=== PATIENT | female | born 1945 | race Caucasian/White ===

== ENCOUNTER → 2023-05-30 09:00 | Outpatient (REF) | payer MEDICARE, SELFPAY | LOC: HWRAD 09:00 | PROVIDERS: ATTENDING PHYSICIAN Family Medicine | DX: M81.0 Age-related osteoporosis without current pathological fracture (principal) | CPT/HCPCS: 77080 ==

== ENCOUNTER → 2023-06-13 10:40 | Outpatient (REF) | payer MEDICARE, SELFPAY | LOC: HWWDC 10:40 | PROVIDERS: ATTENDING PHYSICIAN Family Medicine | DX: Z12.31 Encounter for screening mammogram for malignant neoplasm of breast (principal) | CPT/HCPCS: 77063; 77067 ==

== ENCOUNTER 2023-08-25 07:19 | Emergency (ER) | payer MEDICARE, SELFPAY ==
[2023-08-25 07:25] VITALS: BP 122/70
--- NOTE | 2023-08-25 07:58 | ED.GENMED ---
History of Present Illness
General
Chief Complaint: Dizziness
Source: patient
Exam Limitations: none
Time Seen by Provider: 08/25/23 07:50
Travel History
Have you had any contact with someone who has COVID-19?: No
Do you have any symptoms of coronavirus? Fever > 100 degrees, chills, cough, shortness of breath, sore throat, loss of taste or smell, muscle aches, or headache?: No
History of Present Illness
History of Present Illness:
77-year-old female fell asleep on the couch. She got up to go the bathroom became dizzy lightheaded and fell to the floor hitting her face. She does not think she passed out. Only complaints are facial trauma and left hand trauma. No headache
neck pain chest pain abdominal pain lightheadedness or other complaints. She has had some nausea and vomiting in the last few days. Admits to occasional alcohol use.
Past History
Past History
ED Past Medical History: GERD, HTN and Other
ED Past Surgical History: Orthopedic (Knee surgery, arthroscopic. ) and Other (endoscopy/colonoscopy)
Social History
Tobacco: Non-smoker
Alcohol: Other (wine, history of alcohol abuse)
Drug: None
Personal:
Living: with family
Employment: Not employed
Family History
Family History: Other; Negative Diabetes, Hypertension or CAD
Review of Systems
Review of Systems
All Other Systems: Not applicable
Respiratory: Reports no symptoms
Cardiac: Reports no symptoms
ABD/GI: Reports no symptoms
Phy Exam
Physical Exam
Physical Exam:
TRAUMA EXAM:
VITAL SIGNS: Vital signs reviewed, cooperative
DISTRESS: No active disease
EYES: Pupils reactive, no orbital trauma
NOSE: No deformity or epistaxis
FACE AND SCALP: No scalp trauma, external canals no blood. TMJs normal. Intruded and/or fractured right upper central incisor with discoloration. Avulsed left upper central incisor. 3 cm jagged intraoral laceration. Small laceration 1 cm below
the lip with a likely tooth fragment.
NECK: Supple nontender
BACK: Back nontender, pelvis stable to compression
RESPIRATORY: No distress, breath sounds normal, no tender chest wall
CARDIAC: No murmur, pulses equal and strong
ABDOMEN: Soft nontender bowel sounds normal
SKIN: Superficial abrasion of the left forearm. Mild ecchymosis left dorsal hand. No other findings
EXTREMITIES: Nontender, except for mild tenderness left mid hand
NEUROLOGICAL: Alert, oriented, no motor deficits
PSYCH: Mood affect normal
Course
Orders/Labs/Results
Orders:
Orders
08/25/23 07:56
Cardiac Monitoring- Treatment ONCE
IV Insert/Care/Rem.- Treatment PRN
0.9% Sodium Chloride 1000 ml [Nss] 1,000 ml IV BOLUS
Pulse Ox/cont/shift [RESP] Stat
Quantity: 1
08/25/23 07:57
CT Cervical Spine W/o Iv Contr Urgent
Comment:
Reason For Exam: trauma
CT Facial Bones W/o Iv Contras Urgent
Comment:
Reason For Exam: trauma
CT Head W/o Iv Contrast Urgent
Comment:
Reason For Exam: trauma
Cardiac Monitoring- Treatment ONCE
Tetanus/Diphth/Acelpertussis [Adacel] 0.5 ml IM .ONCE ONE
08/25/23 07:58
Hand, Left 3 View [CR Hand - Left Min 3 Views] Urgent
Comment:
Reason For Exam: trauma
08/25/23 08:01
EKG [Electrocardiogram (*1)] Urgent
Reason for Study: Syncope
EKG- Treatment ONCE
08/25/23 08:15
Alcohol Urgent
Complete Blood Count/With Diff Urgent
Comprehensive Metabolic Panel Urgent
PTT Urgent
Prothrombin Time Urgent
08/25/23 08:31
Bacitracin/Polymyxin B [Polysporin Ointment] 1 applic .ROUTE .STK-MED ONE
08/25/23 10:31
CT Neck Angio W/wo Iv Contrast Urgent
Comment:
Reason For Exam: Cervical foraminal fracture. Trauma.
08/25/23 11:43
Volar Left-Treatment ONCE
08/25/23 11:46
Cervical Collar- Treatment ONCE
Collar Type: Hard Cervical Collar
Ketorolac [Toradol] 15 mg IV NOW STA
08/25/23 11:49
Amoxicillin 875 mg/Clav 125 mg [Augmentin 875 mg/125 mg] 1 tablet PO NOW STA
Abnormal Lab Results
08/25/23
08:15
RBC 3.95 L 10^6/uL
(4.20-5.40)
Hct 36.0 L %
(37.0-47.0)
MCH 32.2 H pg
(27.0-31.0)
Sodium 133 L mmol/L
(135-145)
Potassium 3.3 L mmol/L
(3.5-5.1)
Calcium 10.3 H mg/dl
(8.4-10.2)
AST 73 H U/L
(14-36)
08/25/23 08:15
08/25/23 08:15
Vital Signs
Initial and Last Documented VS:
Initial Vital Signs
Pulse Resp Pulse Ox
97 13 95
08/25/23 07:21 08/25/23 07:21 08/25/23 07:21
Last Documented Vital Signs
Temp Pulse Resp BP Pulse Ox
98.3 F 108 18 138/114 95
08/25/23 07:25 08/25/23 12:41 08/25/23 12:41 08/25/23 12:41 08/25/23 07:41
Procedures
Laceration Closure
Lower Medial Face:
Status of Wound: clean and imbedded foreign material (Teeth fragments)
Size of Wound in cm: 2
Description of Wound Edges: ragged
Preparation: cleaned with saline
Anesthesia: 1% Lidocaine with epi
Revision/Debridement: minor revision
Wound exploration: all visible FB removed
Type of Closure: single layer closure
Skin Closure Material: 5-0 nylon
Number of sutures: 4
Lower Lip:
Size of Wound in cm: 3
Description of Wound Edges: ragged
Anesthesia: 1% Lidocaine with epi
Revision/Debridement: routine- no revision
Wound exploration: explored to base- no FB
Type of Closure: single layer closure
Skin Closure Material: 4-0 vicryl
Number of sutures: 5
*Radiology
Radiology exam reviewed: radiology read reviewed (Transverse fracture at C4. Nondisplaced nasal fracture. Small foreign bodies in the soft tissue under the lip.)
*Critical Care Note
Total Time (30-74mins, 75-104mins- exclusive of procedures): 40
Update Note
Update Note:
Discussed with neurosurgery. Hard collar and follow-up. X-ray sent to orthopedics for their follow-up. Discussed with patient's dentist who will see her later today.
ED Attending Note
-
Portions of this chart may have been created with voice recognition software.� Occasional wrong word or��sound alike� substitutions may have occurred due to the inherent limitations of voice recognition software.
Discharge Plan
Departure
Patient Disposition: Home (Routine Discharge)
Date of Disposition: 08/25/23
Time of Disposition: 12:35
Patient with high blood pressure during this ER visit?: Yes
Discharge Problem:
Orthostatic near syncope, Through and through lip laceration, Nondisplaced cervical fracture, Dental avulsion and intrusion, Third metacarpal fracture, Possible fifth finger fracture
Instructions: Impacted Tooth (DC), Fractured Tooth (DC), Neck Fracture (DC), Laceration Repair With Stitches ED, Nose Fracture ED
Prescriptions:
New
amoxicillin-pot clavulanate 875-125 mg tablet
1 tab PO BID Qty: 14 0RF
No Action
multivitamin Tablet
1 tab PO DAILY
pantoprazole 40 mg Tablet,Delayed Release (Dr/Ec)
40 mg PO DAILY
Probiotic 3 billion cell Capsule
3,000 mmu cells PO DAILY
cyanocobalamin (vitamin B-12) 1,000 mcg Tablet
1,000 mcg PO DAILY
lidocaine 5 % Adhesive Patch,Medicated
1 patch TOPICAL DAILY PRN (Reason: SCIATICA)
ibandronate 150 mg tablet
150 mg PO MONTHLY
cholecalciferol (vitamin D3) 50 mcg (2,000 unit) Tablet
4,000 unit PO DAILY
metoprolol succinate 50 MG tablet extended release 24 hr
50 mg PO DAILY
docusate sodium 100 mg Capsule
100 mg PO BID Qty: 0 0RF
folic acid 1 mg Tablet
1 mg PO DAILY Qty: 0 0RF
potassium chloride [Klor-Con M20] 20 mEq Tablet,Er Particles/Crystals
20 meq PO DAILY Qty: 0 0RF
simethicone 80 mg Tablet,Chewable
80 mg PO QIDPRN PRN (Reason: gas) Qty: 0 0RF
sennosides [senna] 8.6 mg Tablet
17.2 mg PO BID Qty: 0 0RF
thiamine HCl (vitamin B1) 100 mg Tablet
100 mg PO BID Qty: 0 0RF
hydrocodone-acetaminophen 5-300 mg tablet
1 tab PO Q4H PRN (Reason: Pain) Qty: 14 0RF
hydrocodone-acetaminophen 5-325 mg tablet
1 tab PO Q8H PRN (Reason: Pain) Qty: 14 0RF
Referrals:
Zuhair Garvin DO [Active] - Follow up in 5-7 days
Ivett Acosta DO [Family Provider] -
Sean Lopez MD [Active] - Follow up in 2-3 days
Activity Restrictions/Additional Instructions:
Follow-up with orthopedics and neurosurgery
Wear the collar until follow-up
Call your dentist today to be seen today
The sutures should come out in about a week if they have not fallen out internally. The external sutures have to come out
Interventions
Interventions:
*Risk Screen - Suicide Last Done: 08/25/23 13:09
*General Assessment Last Done: 08/25/23 13:09
*Neglect/Abuse Screening Last Done: 08/25/23 13:09
ED- Fall Risk Assessment Last Done: 08/25/23 13:10
*ED COVID-19 Vaccine History Last Done: 08/25/23 13:09
*Nursing Disposition Last Done: 08/25/23 13:09
ED- Neurological Assessment Last Done: 08/25/23 07:44
ED- Cardiac Assessment Last Done: 08/25/23 07:41
Discharge Date and Time
Discharge Date/Time: 08/25/23 13:10
Print Language: [place]IN[place]
[2023-08-25 08:29] LABS: % Basophils 0.5 % (0-2); % Eosinophils 1.1 % (0-6); % Immature Granulocytes 0.3 % (0-0.5); % Lymphocytes 37.5 % (20.5-51.1); % Neutrophils 54.6 % (42.2-75.2); Absolute Eosinophils 0.1 10^3/uL (0-0.7); Absolute Lymphocytes 2.4 10^3/uL (1.2-3.4); Absolute Monocytes 0.4 10^3/uL (0.1-0.6); Absolute Neutrophils 3.4 10^3/uL (1.4-6.5); Hemoglobin 12.7 g/dL (12.0-16.0); Mean Corp Hgb Conc. 35.3 g/dL (33.0-37.0); Mean Corpuscular Hgb 32.2 pg (27.0-31.0); Mean Corpuscular Volume 91.1 fL (81.0-99.0); Mean Platelet Volume 8.7 fL (7.4-10.4); Nucleated Red Blood Cells % 0 %; Platelet Count 152 10^3/uL (130-400); Red Blood Cell Count 3.95 10^6/uL (4.20-5.40); White Blood Cell Count 6.3 10^3/uL (4.8-10.8)
[2023-08-25 08:34] LABS: INR 1.03; PT 13.5 Sec (11.4-14.6)
[2023-08-25 08:35] LABS: APTT 24.7 Sec (23.4-35.0)
[2023-08-25 08:41] LABS: ALT (SGPT) 22 U/L (0-35); AST (SGOT) 73 U/L (14-36); Albumin 4.3 g/dl (3.5-5.0); Alcohol 92 mg/dl; Alkaline Phosphatase 112 U/L (38-126); Blood Urea Nitrogen 15 mg/dl (7-17); Calcium 10.3 mg/dl (8.4-10.2); Carbon Dioxide 24 mmol/L (22-30); Chloride 101 mmol/L (98-107); Glucose 99 mg/dl (70-99); Potassium 3.3 mmol/L (3.5-5.1); Sodium 133 mmol/L (135-145); Total Bilirubin 0.8 mg/dl (0.2-1.3); Total Protein 7.3 g/dl (6.3-8.2); eGFR > 60.00
[2023-08-25] MEDS: NSS 1000 IV (09:54)
[2023-08-25] MEDS: ADACEL 0.5 ML IM (09:57)
[2023-08-25 11:23] VITALS: BP 146/72
[2023-08-25] MEDS: AUGMENTIN 875 MG/125 MG 1 TABLET PO (12:33)
[2023-08-25] MEDS: TORADOL 15 MG IV (12:33)
[2023-08-25 12:41] VITALS: BP 138/114
== END 2023-08-25 13:10 | disposition home or self-care (01) ==
LOC: EMR 07:19
PROVIDERS: EMERGENCY PHYSICIAN Emergency Medicine; FAMILY PHYSICIAN Family Medicine
DX: S01.511A Laceration without foreign body of lip, initial encounter (principal); S12.301A Unspecified nondisplaced fracture of fourth cervical vertebra, initial encounter for closed fracture; S03.2XXA Dislocation of tooth, initial encounter; S62.323A Displaced fracture of shaft of third metacarpal bone, left hand, initial encounter for closed fracture; S62.345A Nondisplaced fracture of base of fourth metacarpal bone, left hand, initial encounter for closed fracture; S02.2XXA Fracture of nasal bones, initial encounter for closed fracture; W19.XXXA Unspecified fall, initial encounter; R55 Syncope and collapse; I10 Essential (primary) hypertension; Z23 Encounter for immunization
CPT/HCPCS: 99285; 96374; 96361 ×3; 12013; 90471; 70450; 70486; 70498; 72125; 73130; 80053; 82077; 85025; 85610; 85730; 90715; 93005; Q9967

== ENCOUNTER 2023-08-31 16:10 | Outpatient (RCR) | payer MEDICARE, SELFPAY | END 2023-08-31 23:59 | disposition home or self-care (01) | LOC: ROT 16:10 | PROVIDERS: ATTENDING PHYSICIAN Orthopaedic Surgery Hand Surgery; FAMILY PHYSICIAN Family Medicine | DX: S62.323D Displaced fracture of shaft of third metacarpal bone, left hand, subsequent encounter for fracture with routine healing (principal); S62.345D Nondisplaced fracture of base of fourth metacarpal bone, left hand, subsequent encounter for fracture with routine healing; Z73.6 Limitation of activities due to disability | CPT/HCPCS: 97760 ==

== ENCOUNTER → 2024-05-15 11:03 | Outpatient (REF) | payer MEDICARE, SELFPAY ==
[2024-05-15 16:04] LABS: Intact PTH 45.2 pg/ml (13.6-85.8)
[2024-05-15 16:21] LABS: TSH 1.26 uIU/ml (0.47-4.68)
== END ==
LOC: HWLAB 11:03
PROVIDERS: ATTENDING PHYSICIAN Physician Assistant; FAMILY PHYSICIAN Family Medicine
DX: E07.9 Disorder of thyroid, unspecified (principal); E21.5 Disorder of parathyroid gland, unspecified; E55.9 Vitamin D deficiency, unspecified; M81.0 Age-related osteoporosis without current pathological fracture; R26.89 Other abnormalities of gait and mobility
CPT/HCPCS: 36415; 82306; 83970; 84443

== ENCOUNTER → 2024-07-24 10:46 | Outpatient (REF) | payer MEDICARE, SELFPAY | LOC: HWWDC 10:46 | PROVIDERS: ATTENDING PHYSICIAN Family Medicine | DX: Z12.31 Encounter for screening mammogram for malignant neoplasm of breast (principal) | CPT/HCPCS: 77063; 77067 ==

== ENCOUNTER 2025-04-24 12:56 | Emergency (ER) | payer MEDICARE, SELFPAY ==
[2025-04-24 13:08] VITALS: BP 123/77
[2025-04-24] MEDS: ADACEL 0.5 ML IM (15:54)
--- NOTE | 2025-04-24 16:02 | ED.GENMED ---
History of Present Illness
General
Chief Complaint: Head Injury
Source: patient
Exam Limitations: none
Time Seen by Provider: 04/24/25 14:29
Nursing documentation reviewed up to this point in time: agreed with
History of Present Illness
History of Present Illness:
79-year-old female presenting to the emergency department today with concerns of injury to her right forehead after losing her balance while leaning over in her driveway hitting her right forehead. Did not lose consciousness not on blood thinners
unsure when her last tetanus shot was. Denies any extremity discomfort or neck pain.
Past History
Past History
ED Past Medical History: GERD, HTN and Other
ED Past Surgical History: Orthopedic (Knee surgery, arthroscopic. ) and Other (endoscopy/colonoscopy)
Social History
Tobacco: Non-smoker
Alcohol: Other (wine, history of alcohol abuse)
Drug: None
Personal:
Living: with family
Employment: Not employed
Family History
Family History: Other; Negative Diabetes, Hypertension or CAD
Review of Systems
Review of Systems
Allergies reviewed?: Yes
All Other Systems: ROS reviewed and negative except as documented in HPI and ROS
Phy Exam
Physical Exam
Physical Exam:
GENERAL: Alert , in no apparent distress
EYE: pupils equal and reactive
NECK: Supple, no significant adenopathy.
ENT: Right forehead with abrasion and laceration roughly 2.5 cm in length. Subcutaneous in depth. o/p clr, mmm.
CARDIAC: Regular rate and rhythm .
LUNGS: Clear breath sounds bilaterally, no acute respiratory distress, no wheezes/rales/rhonchi
ABDOMEN: Soft, without focal tenderness, no r/g, no cvat
NEUROLOGICAL: Alert and oriented, no focal neuro deficits
SKIN: Warm and dry, skin intact.
MUSCULOSKELETAL: No edema, well perfused.
PSYCH: Normal and appropriate interaction.
Course
Orders/Labs/Results
Orders:
Orders
04/24/25 13:[address] [CT Head W/o Iv Contrast] Urgent
Comment:
Reason For Exam: head trauma
04/24/25 15:44
Tetanus/Diphth/Acelpertussis [Adacel] 0.5 ml IM .ONCE ONE
Vital Signs
Initial and Last Documented VS:
Initial Vital Signs
Temp Pulse Resp BP Pulse Ox
98.2 F 86 18 123/77 96
04/24/25 13:08 04/24/25 13:08 04/24/25 13:08 04/24/25 13:08 04/24/25 13:08
Last Documented Vital Signs
Temp Pulse Resp BP Pulse Ox
98.2 F 86 18 123/77 96
04/24/25 13:08 04/24/25 13:08 04/24/25 13:08 04/24/25 13:08 04/24/25 13:08
Procedures
Laceration Closure
Right Forehead:
Status of Wound: clean
Size of Wound in cm: 2.5
Description of Wound Edges: surrounded by abrasion
Preparation: cleaned with saline
Anesthesia: 1% Lidocaine with epi
Revision/Debridement: routine- no revision
Wound exploration: explored to base- no FB
Type of Closure: single layer closure
Skin Closure Material: other (5-0 fast-absorbing plain gut)
Number of sutures: 4
MDM/Problems Addressed
MDM/Problems Addressed:
79-year-old female presenting to the emergency department today with concerns of ground-level fall hitting her right forehead sustaining laceration to the right forehead. No loss of consciousness. Head CT without emergent findings otherwise looks
well no additional symptoms was given updated tetanus shot low risk for infection no signs of foreign body. Cleaned thoroughly and closed with 4 dissolving stitches. Return precautions given.
*Pulse Oximetry
SaO2: 96
Patient hypoxic: no (96)
*Critical Care Note
Total Time (30-74mins, 75-104mins- exclusive of procedures): Not Applicable
ED Attending Note
-
Portions of this chart may have been created with voice recognition software.� Occasional wrong word or��sound alike� substitutions may have occurred due to the inherent limitations of voice recognition software.
Discharge Plan
Departure
Patient Disposition: Home (Routine Discharge)
Date of Disposition: 04/24/25
Time of Disposition: 16:05
Patient with high blood pressure during this ER visit?: No
Condition: Good
Covid-19: Not Applicable
Discharge Problem:
Forehead laceration
Instructions: Laceration Repair With Stitches (DC), Minor Head Injury (DC)
Prescriptions:
No Action
multivitamin Tablet
1 tab PO DAILY
pantoprazole 40 mg Tablet,Delayed Release (Dr/Ec)
40 mg PO DAILY
Probiotic 3 billion cell Capsule
3,000 mmu cells PO DAILY
cyanocobalamin (vitamin B-12) 1,000 mcg Tablet
1,000 mcg PO DAILY
lidocaine 5 % Adhesive Patch,Medicated
1 patch TOPICAL DAILY PRN (Reason: SCIATICA)
ibandronate 150 mg tablet
150 mg PO MONTHLY
cholecalciferol (vitamin D3) 50 mcg (2,000 unit) Tablet
4,000 unit PO DAILY
metoprolol succinate 50 MG tablet extended release 24 hr
50 mg PO DAILY
docusate sodium 100 mg Capsule
100 mg PO BID Qty: 0 0RF
folic acid 1 mg Tablet
1 mg PO DAILY Qty: 0 0RF
potassium chloride [Klor-Con M20] 20 mEq Tablet,Er Particles/Crystals
20 meq PO DAILY Qty: 0 0RF
simethicone 80 mg Tablet,Chewable
80 mg PO QIDPRN PRN (Reason: gas) Qty: 0 0RF
sennosides [senna] 8.6 mg Tablet
17.2 mg PO BID Qty: 0 0RF
thiamine HCl (vitamin B1) 100 mg Tablet
100 mg PO BID Qty: 0 0RF
hydrocodone-acetaminophen 5-300 mg tablet
1 tab PO Q4H PRN (Reason: Pain) Qty: 14 0RF
hydrocodone-acetaminophen 5-325 mg tablet
1 tab PO Q8H PRN (Reason: Pain) Qty: 14 0RF
amoxicillin-pot clavulanate 875-125 mg tablet
1 tab PO BID Qty: 14 0RF
Referrals:
Ivett Acosta DO [Family Provider, Family Practice]
Activity Restrictions/Additional Instructions:
You came to the emergency department after head injury. Here you had a normal head CT. You had 4 dissolving stitches placed to right forehead. Please keep the area clean covered and follow-up with your primary care doctor in the next week or so.
Return for any worsening, new or concerning symptoms.
Discharge Date and Time
Print Language: [place]
== END 2025-04-24 16:15 | disposition home or self-care (01) ==
LOC: EMR 12:56
PROVIDERS: EMERGENCY PHYSICIAN Emergency Medicine; FAMILY PHYSICIAN Family Medicine
DX: S01.81XA Laceration without foreign body of other part of head, initial encounter (principal); I10 Essential (primary) hypertension; W19.XXXA Unspecified fall, initial encounter; Z23 Encounter for immunization
CPT/HCPCS: 12011; 90471; 99284; 70450; 90715